=== PATIENT | female | born 1980 | race Caucasian/White ===

== ENCOUNTER 2018-09-16 12:23 | Day surgery (SDC) | payer BC ==
[~2018-09-16] VITALS: Ht 177.8 cm; Wt 69.3 kg
[2018-09-16 13:46] VITALS: Ht 177.8 cm; Wt 69.3 kg
[2018-09-16 14:23] VITALS: BP 101/54; PULSE 37; RESP 14
--- NOTE | 2018-09-16 14:46 | PREAC ---
Date/Time of Note Date/Time of Note DATE: 09/16/18 TIME: 14:43 Anesthesia Eval and Record Evaluation Time Pre-Procedure Interview DATE: 09/16/18 TIME: 14:43 Age 38 Sex female NPO: 8 hrs Preoperative diagnosis Abdominal pain,lower GI bleed Planned procedure EGD, Colonoscopy Past Medical History Past Medical History: Includes Cardio: Dyslipidemia GI: GERD, Obesity Heme: Anemia Surgery & Anesthesia Issues No known issue Meds Anticoagulation: No Beta Mariya within 24 hr: No Reason Beta Mariya not given: Pt. not on B-Mariya Reported Medications [None] No Conflict Check 09/16/18 Meds reviewed: Yes Allergies Coded Allergies: meperidine (Verified Allergy, Unknown, 09/16/18) Allergies Reviewed: Yes Labs/Studies Labs Reviewed: Reviewed by anesthesiologist test: Negative Studies: ECG Pre-procedure Exam Last vitals Vital Signs Date Temp Pulse Resp B/P (MAP) Pulse Ox O2 O2 Flow FiO2 Time Delivery Rate 09/16/18 97.2 37 14 101/54 100 Room Air 14:23 (70) Airway: Adequate mouth opening, Adequate thyromental dist Mallampati: Mallampati II Teeth: Normal Lung: Normal Heart: Normal ASA Physical Status ASA physical status: 2 Emergency: None Planned Anesthetic General/MAC: MAC Planned Pain Management Parenteral pain med Pre-operative Attestations Prior to commencing anesthesia and surgery, the patient was re-evaluated, there was verification of: *The patient's identity *The results of appropriate recent lab work and preoperative vital signs *The above evaluation not changing prior to induction *Anesthetic plan, risk benefits, alternative and complications discussed with patient/family; questions answered; patient/family understands, accepts and wishes to proceed. MARSHALL CARDENAS MD Sep 16, 2018 14:46
[2018-09-16] MEDS ORDERED: LIDOCAINE 2% (SDV) 5 ML INJ ONE (14:47)
[2018-09-16] MEDS ORDERED: PROPOFOL 60 ML ONE (14:47)
--- NOTE | 2018-09-16 14:49 | HPN ---
Date/Time of Note Date/Time of Note DATE: 09/16/18 TIME: 14:49 Interval H&P Admission Note Pt. seen H&P reviewed: No system changes OSEAS BLANCO Sep 16, 2018 14:49
--- NOTE | 2018-09-16 15:22 | PAC ---
Date/Time of Note Date/Time of Note DATE: 09/16/18 TIME: 15:22 Post-Anesthesia Notes Post-Anesthesia Note Last documented vital signs Vital Signs Date Temp Pulse Resp B/P (MAP) Pulse Ox O2 O2 Flow FiO2 Time Delivery Rate 09/16/18 97.2 37 14 101/54 100 Room Air 14:23 (70) Activity: WNL Respiratory function: WNL Cardiovascular function: WNL Mental status: Baseline Pain reasonably controlled: Yes Hydration appropriate: Yes Nausea/Vomiting absent: Yes Comments BP:112/56, P:70, Spo2:100%, T:98,8 MARSHALL CARDENAS MD Sep 16, 2018 15:22
[2018-09-16] MEDS ORDERED: ONDANSETRON 4 MG INJ IV PRN (15:30)
[2018-09-16] MEDS ORDERED: METOCLOPRAMIDE 10 MG INJ IV PRN (15:30)
[2018-09-16] MEDS ORDERED: EPHEDrine SULFATE 50 MG/5 ML SYG IV PRN (15:30)
[2018-09-16] MEDS ORDERED: ATROPINE 1 MG/10 ML SYRINGE IV PRN (15:30)
[2018-09-16] MEDS ORDERED: FENTAnyl 50 MCG/ML VIAL IV PRN (15:30)
[2018-09-16 15:52] VITALS: BP 110/71; PULSE 57; RESP 16
== END 2018-09-16 16:40 | disposition home or self-care (01) ==
LOC: GIL 12:23
PROVIDERS: ATTEND Internal Medicine Gastroenterology
DX: K21.0 Gastro-esophageal reflux disease with esophagitis (principal); K64.9 Unspecified hemorrhoids; K29.70 Gastritis, unspecified, without bleeding
CPT/HCPCS: 43239; 45378; 84703; 88305; 88312; 88313; Z7610